=== PATIENT | female | born 1980 | race Caucasian/White ===

== ENCOUNTER 2017-06-25 17:02 | Emergency (ER) | END 2017-06-25 17:43 | disposition home or self-care (01) ==

== ENCOUNTER → 2018-03-03 | Emergency (ER) | END | disposition left against medical advice (07) ==

== ENCOUNTER 2018-09-19 02:11 | Emergency (ER) | payer OTHER ==
[~2018-09-19] VITALS: Ht 152.4 cm; Wt 65.0 kg
[~2018-09-19 02:11] MED LIST: AZIT250T PO; BENZ-5 PO; CARB15DR23 RIGHT EAR; ONDA4TAB8 PO; OSEL75CA23 PO; PHEN177S43 MT; RANI150T35 PO
[2018-09-19 02:15] VITALS: Ht 152.4 cm; Wt 65.0 kg
[2018-09-19] MEDS ORDERED: PRED20TA PO (04:42)
--- NOTE | 2018-09-19 04:59 | ERD ---
ER Documentation Chief Complaint Chief Complaint right knee ra flare up HPI 38-year-old female presenting with right knee pain. She has a history of rheumatoid arthritis and states that she is having a severe flare currently. She took 10 mg of prednisone at home. She states that she has had rheumatoid arthritis for the last 3 years. She denies any acute traumatic injury today. Denies any numbness or tingling. Denies fevers. Denies other medical problems. NKDA. Surgical history denies. Social history denies ROS All systems reviewed and are negative except as per history of present illness. Medications Home Meds Active Scripts Prednisone* (Prednisone*) 20 Mg Tab, 40 MG PO DAILY for 5 Days, TAB Prov:DUSTIN OSBORN PA-C 09/19/18 Benzonatate* (Benzonatate*) 100 Mg Capsule, 100 MG PO TID PRN for COUGH, #15 CAP Prov:SABINE TAVAREZ PA-C 06/25/17 Phenol* (Chloraseptic* Hyampom) 177 Ml Hyampom.pump, 2 SPRAY MT Q2H PRN for SORE THROAT, #1 BOTTLE Prov:SABINE TAVAREZ PA-C 06/25/17 Oseltamivir Phosphate* (Tamiflu*) 75 Mg Capsule, 75 MG PO BID for 5 Days, #10 CAP Prov:SABINE TAVAREZ PA-C 06/25/17 Azithromycin* (Zithromax*) 250 Mg Tablet, 250 MG PO .ZPACK DIRECTED, #6 TAB TAKE 500 MG (2 TABS) THE FIRST DAY THEN 250 MG (1 TAB) DAYS 2-5 Prov:SABINE TAVAREZ PA-C 06/25/17 Ondansetron Hcl* (Zofran*) 4 Mg Tablet, 4 MG PO Q8H PRN for NAUSEA AND/OR VOMITING, #10 TAB Prov:BRADLEY RODRÍGUEZ 05/10/15 Ranitidine Hcl* (Zantac*) 150 Mg Tablet, 150 MG PO BID, #30 TAB Prov:BRADLEY RODRÍGUEZ 05/10/15 Reported Medications Carbamide Peroxide (Ear Wax Removal) 15 Ml Drops, 5 DROP RIGHT EAR QID 07/13/13 Allergies Allergies: Coded Allergies: No Known Allergy (Verified , 01/17/14) PMhx/Soc History of Surgery: Yes (Ectopic , Valeria, multiple cosmetic) Anesthesia Reaction: No Hx Neurological Disorder: No Hx Respiratory Disorders: No Hx Cardiac Disorders: No Hx Psychiatric Problems: No Hx Miscellaneous Medical Probl: Yes (RA) Hx Alcohol Use: Yes (SOCIALLY) Hx Substance Use: No Hx Tobacco Use: No Smoking Status: Never smoker FmHx Family History: No diabetes, No coronary disease, No other Physical Exam Vitals Vital Signs Date Temp Pulse Resp B/P (MAP) Pulse Ox O2 O2 Flow FiO2 Time Delivery Rate 09/19/18 99.9 85 20 155/87 96 02:15 (109) Physical Exam GENERAL: The patient is well-appearing, well-nourished, in no acute distress CHEST: Clear to auscultation bilaterally. There are no rales, wheezes or rhonchi. HEART: Regular rate and rhythm. No murmurs, clicks, rubs or gallops. No S3 or S4. EXTREMITIES: No erythema or swelling noted to the right knee. No valgus or varus deformity. Strength 5 out of 5. Pain with movement. NEUROLOGIC: Alert and oriented. Cranial nerves II through XII intact. Motor strength in all 4 extremities with 5 out of 5 strength. Sensation grossly intact. Normal speech and gait. Babinski negative. DTR 2+ throughout. SKIN: There is no apparent rash or petechiae. The skin is warm and dry. Results 24 hrs Current Medications Medications Dose Sig/Anatoliy Start Time Status Last (Trade) Ordered Route PRN Stop Time Admin Dose Reason Admin 1 tab ONCE ONCE 09/19/18 Acetaminophen PO 05:00 / 09/19/18 05:01 Hydrocodone Bitart (Stanley (5/325)) Ondansetron 4 mg ONCE STAT 09/19/18 DC HCl (Zofran ODT 04:40 Odt) 09/19/18 04:41 Procedures/MDM Course: Stanley and Zofran given in ED. MDM: 38-year-old female presenting with knee pain. I have low suspicion for a cute fracture dislocation. I have low suspicion for septic joint. I have low suspicion for tendon or ligament rupture. I have low suspicion for neuro deficit. Patient is discharged with strict ER precautions and told to follow-up with primary care within 1 to 2 days for close evaluation. Patient is told symptoms change or worsen to return immediately to the ER. All questions answered at discharge Departure Diagnosis: Primary Impression: Knee pain Condition: Stable Patient Instructions: Rheumatoid Arthritis Referrals: [facility] YOU HAVE RECEIVED A MEDICAL SCREENING EXAM AND THE RESULTS INDICATE THAT YOU DO NOT HAVE A CONDITION THAT REQUIRES URGENT TREATMENT IN THE EMERGENCY DEPARTMENT. FURTHER EVALUATION AND TREATMENT OF YOUR CONDITION CAN WAIT UNTIL YOU ARE SEEN IN YOUR DOCTORS OFFICE WITHIN THE NEXT 1-2 DAYS. IT IS YOUR RESPONSIBILITY TO MAKE AN APPOINTMENT FOR FOLOW-UP CARE. IF YOU HAVE A PRIMARY DOCTOR --you should call your primary doctor and schedule an appointment IF YOU DO NOT HAVE A PRIMARY DOCTOR YOU CAN CALL OUR PHYSICIAN REFERRAL HOTLINE AT IF YOU CAN NOT AFFORD TO SEE A PHYSICIAN YOU CAN CHOSE FROM THE FOLLOWING [facility] [address] [facility]. [facility] [address] [facility] [address] [facility] [facility] [address] [facility]. [facility] [address] [facility]. [facility] [address] Additional Instructions: FOLLOW UP WITH YOUR PRIMARY CARE PHYSICIAN TOMORROW.Return to this facility if you are not improving as expected. DUSTIN OSBORN PA-C September 19, 2018 04:59
[2018-09-19] MEDS ORDERED: DEXAMETHASONE 10 MG/ML 1 ML INJ IM ONE (05:30)
[2018-09-19] MEDS: ONDANSETRON (ODT) 4 MG TAB ODT STA ×2 (05:37→05:48)
[2018-09-19] MEDS: HYDROCODONE/APAP (5/325) TAB PO ONE ×2 (05:37→05:49)
[2018-09-19 06:15] VITALS: BP 103/57; PULSE 76; RESP 16
== END 2018-09-19 06:18 | disposition home or self-care (01) ==
LOC: FTE 02:11
DX: M25.561 Pain in right knee (principal)
CPT/HCPCS: 96372; 99284; J1100